=== PATIENT | female | born 1955 | race Caucasian/White ===

== ENCOUNTER 2020-10-04 12:27 | Inpatient (IN) | payer BC, SELFPAY ==
[2020-10-04] VITALS (8 sets, daily range): BP systolic 99–131; BP diastolic 59–77; PULSE 63–99; RESP 20–84; TEMP 36.4–39.1; O2SAT 4–96; BMI 39.0
--- NOTE | 2020-10-04 | ECG_ITS ---
Test Reason : DYSPNEA Blood Pressure : / mmHG Vent. Rate : 084 BPM Atrial Rate : 084 BPM P-R Int : 128 ms QRS Dur : 096 ms QT Int : 382 ms P-R-T Axes : 038 058 028 degrees QTc Int : 451 ms Normal sinus rhythm Normal ECG No previous ECGs available Referred By: Generic ED Physician Electronically Signed By:PHUONG JORDAN
--- NOTE | 2020-10-04 | XR_ITS ---
EXAMINATION: XR CHEST CLINICAL INFORMATION: Hypoxia. COMPARISON: None TECHNIQUE: Frontal view of the chest was obtained. FINDINGS: The lungs are hypoexpanded with patchy opacity seen in right upper lobe, right lower lobe and left lower lobe just above infiltrates. Heart size and pulmonary vascularity is normal. No gross bony abnormality seen. XR/XR chest 1V IMPRESSION: Bilateral multilobar infiltrates.
--- NOTE | 2020-10-04 13:15 | PC.NURSE ---
pt alert and but slightly confused when asking simple questions pt found satting 87%on room while sitting in the emc1 keys bed, moved over quickly to emc4, after ambulation pt's satting at 66% on room air, ls clear, pt is warm to touch, breathing anywhere from 20-26 per min. sinus tach on the monitor about 110.
[2020-10-04 13:41] LABS: Basophils Percent Auto 0.1 % (0-2); Hematocrit 41.6 % (37-47); Hemoglobin 13.9 g/dl (12.0-16.0); Imm Gran Abs Auto 0.13 X10*3/uL (0.00-0.03); Imm Gran Pct Auto 1.5 % (0.0-0.4); Lymphocytes Absolute Auto 0.7 X10*3/uL (1.2-4.9); Lymphocytes Percent Auto 7.9 % (20-40); MANUAL DIFF FLAG NO; Mean Corpuscular HGB Conc 33.4 g/dl (31.0-35.0); Mean Corpuscular Hemoglobin 28.9 pg (27.0-33.0); Mean Corpuscular Volume 86.5 fL (80-98); Mean Platelet Volume 10.6 fL (9.4-12.3); Monocytes Absolute Auto 0.5 X10*3/uL (0.1-1.2); Monocytes Percent Auto 5.6 % (2-11); Neutrophils Absolute Auto 7.6 X10*3/uL (2.0-8.3); Neutrophils Percent Auto 84.9 % (45-73); Platelet Count 243 X10*3/uL (160-400); Red Blood Count 4.81 X10*6/uL (4.20-5.50); Red Cell Distribution Width 12.3 % (11.0-16.0)
--- NOTE | 2020-10-04 13:42 | CT_ITS ---
EXAMINATION: CT HEAD WITHOUT CONTRAST CLINICAL INFORMATION: Weakness, altered mental status COMPARISON: None TECHNIQUE: Contiguous axial imaging was performed from the skull base to vertex without intravenous administration of contrast. This CT examination was performed using dose optimization techniques as appropriate, variously including the following: *Automated exposure control *Adjustment of mA and/or kV according to patient size (this includes techniques or standardized protocols for targeted exams where dose is matched to indication/reason for exam; i.e. extremities or head) *Use of iterative reconstruction technique DLP: 617 mGy-cm FINDINGS: There is no intracranial hemorrhage, hematoma, or extra-axial fluid collection. The ventricles are normal in size. There is no hydrocephalus, edema, or mass effect. The dominguez-white matter differentiation appears symmetric. There is no visible acute territorial infarct or mass lesion. The calvarium appears intact. There is no pneumocephalus or orbital emphysema. The visualized sinuses and middle ears and mastoid air cells show no significant mucosal thickening. There are no air-fluid levels. CT/CT head/brain wo con IMPRESSION: No acute intracranial abnormality.
--- NOTE | 2020-10-04 13:42 | ED.URI ---
HPI - URI/Sore Throat General Chief Complaint: Dyspnea Stated Complaint: covid symptoms Time Seen by Provider: 10/04/20 12:46 Mode of arrival: ambulatory Limitations: altered mental status History of Present Illness HPI Narrative: This is a otherwise healthy 65-year-old female who according to her and her Caleb she has no past medical history- no previous visits here she presents ambulatory via triage with complaint of upper respiratory symptoms of cough, congestion, myalgias for the past 5 days here requesting COVID test. Patient is somewhat slow to respond upon evaluation of her vitals she was found to be hypoxic 80% on room air moved from the rapid COVID testing area to [facility] 4 and dropped to 60% just been ambulating about 10 ft. She seems a little foggy in her thought process likely secondary to the hypoxia I did have a discussion with her who reports again to me that she has been pretty much complaining of myalgias and has had upper respiratory symptoms of slight rhinorrhea/cough and no energy has been sleeping more over the past couple days and she usually goes to search has never missed and yesterday she missed going to [employer] which is highly unusual for her. He tells me that she has no known medical/surgical history. Related Data Allergies Allergy/AdvReac Type Severity Reaction Status Date / Time No Known Allergies Allergy Verified 10/04/20 13:23 Review of Systems Review of Systems: Constitutional: No Weight loss, No Fever, + Chills, No Night Sweats, No Fatigue, No Malaise ENT/Mouth: No Hearing loss, No Ear Pain, No Nasal Congestion, No Sinus Pain, No Hoarseness, No sore throat, + Rhinorrhea, No Swallowing Difficulty Eyes: No Eye Pain, No Swelling, No Redness, No Foreign Body, No Discharge, No Vision Changes Cardiovascular: No Chest Pain, No SOB, No Dyspnea on Exertion, No Orthopnea, No Edema, No Palpitations Respiratory: No Cough, No Sputum, No Wheezing, No Smoke Exposure, No Dyspnea Gastrointestinal: No Nausea, No Vomiting, No Diarrhea, No Constipation, No abdominal Pain, No Hematochezia, No Melena Genitourinary: no irregular bleeding, No Dysuria, No Urinary Frequency, No Hematuria, No Urinary Incontinence, No Urgency, No Flank Pain, No Urinary Flow Changes, No Hesitancy Musculoskeletal: No joint pain, No Myalgias, No Joint Swelling Skin: No Skin Lesions, No rash Neuro: No Weakness, No Numbness, No Paresthesias, No Loss of Consciousness, No Dizziness, No Headache Psych: No Social Issues Heme/Lymph: No Bruising, No Bleeding,No Lymphadenopathy Endocrine: No Polyuria, No Polydipsia, No Temperature Intolerance Yes all other systems are reviewed and are negative [facility] Past Medical History Medical History No known health problems Social History Social History Alcohol intake: never Smoking Status: Never smoker Use of substances other than those prescribed or required for medical reasons: No Advance Directives: No Advance Directives Information Provided: Yes Physical Exam Vital Signs: Vital Signs: Last Vital Signs Temp 102.4 F H 10/04/20 13:17 Pulse 91 10/04/20 14:04 Resp 84 H 10/04/20 14:44 BP 122/64 10/04/20 14:44 Pulse Ox 95 10/04/20 14:44 Body Mass Index 39.0 Reviewed Const: Other: Appears older than stated age Hypoxic Thought process somewhat cloudy Offers no complaints aside from here for COVID test As noted any% on room air and 60% with ambulation of 10 ft Noticeably tachypneic HENMT: Head: Yes normal to inspection Ears: hearing grossly normal bilaterally Eyes: General: appearance normal, both eyes and all related structures Visual Restrepo: normal visual restrepo by confrontation Neck: Neck: Yes normal visual inspection, No positive Brudzinski's sign, No positive Kernig's sign and No tender Thyroid: Thyroid normal Chest: Chest palpation & inspection: normal inspection of the chest Resp: Effort & Inspection: normal respiratory effort Auscultation: clear to auscultation bilaterally Cardio: Jugular venous distension: no JVD Rhythm: regular rhythm Heart sounds: S1 normal heart sound present and S2 normal heart sound present GI: Inspection: Yes normal to inspection Percussion: Yes normal to percussion Auscultation: normal bowel sounds : General: Yes no CVA tenderness Back/Spine/Pelvis: Back: no CVA tenderness Skin: General skin exam: no rashes or lesions noted Extrem: General: Yes normal to inspection Course Course Course Narrative: In review 65-year-old female who apparently has no medical history, surgical history who has had increasingly worsening URI symptoms and increasing lethargy upon arrival somewhat of a poor historian her reports that she has been more foggy in her bowel process found to be hypoxic requiring non-rebreather with positive response. She denies any pain or discomfort. Will need labs including cardiac enzymes had CT, COVID stratification labs. Reevaluation(s) Reevaluation #2: 1515 Bilateral multilobar old infiltrates on the chest x-ray Given Decadron 6 mg IV Case discussed with hospitalist agree given that this is likely COVID pneumonia however given the extensiveness go ahead and administer IV antibiotics. Hospitalist emeka bedside for admission Reevaluation #3: Been informed by lab of critical troponin level 68 EKG nondiagnostic without acute ischemic changes. Plan for repeat at 03:00 hours. Consultations Consultation #1: Hospitalist MDM - URI/Sore Throat Differential Diagnosis Differential diagnosis: Likely upper respiratory infection (, COVID-19, hypoxic respiratory failure, viral syndrome, pneumonia), viral infection and influenza Medical Records Attestation: I reviewed the patient's medical records. Lab Data Attestation: I reviewed the patient's lab results. Result diagrams: 10/04/20 13:32 10/04/20 13:32 Labs: Lab Results 10/04/20 10/04/20 10/04/20 Range/Units 13:31 13:31 13:32 WBC 9.0 (4.8-10.8) X10*3/uL RBC 4.81 (4.20-5.50) X10*6/uL Hgb 13.9 (12.0-16.0) g/dl Hct 41.6 (37-47) % MCV 86.5 (80-98) fL MCH 28.9 (27.0-33.0) pg MCHC 33.4 (31.0-35.0) g/dl RDW 12.3 (11.0-16.0) % Plt Count 243 (160-400) X10*3/uL MPV 10.6 (9.4-12.3) fL Immature Gran % (Auto) 1.5 H (0.0-0.4) % Neut % (Auto) 84.9 H (45-73) % Lymph % (Auto) 7.9 L (20-40) % [place] % (Auto) 5.6 (2-11) % Eos % (Auto) 0.0 (0-4) % Baso % (Auto) 0.1 (0-2) % Lymph # (Auto) 0.7 L (1.2-4.9) X10*3/uL [place] # (Auto) 0.5 (0.1-1.2) X10*3/uL Eos # (Auto) 0.0 (0.0-0.4) X10*3/uL Baso # (Auto) 0.0 (0.0-0.2) X10*3/uL Abs Immat Gran (auto) 0.13 H (0.00-0.03) X10*3/uL Absolute Neuts (auto) 7.6 (2.0-8.3) X10*3/uL Absolute Nucleated RBC 0.000 (0.0-0.012) X10*3/uL Nucleated RBC % (auto) 0.0 (0.0-0.2) /100WBC PT (10.8-13.0) SEC INR (0.9-1.1) APTT (24.1-38.0) SEC D-Dimer NG/ML Sodium (135-145) mmol/L Potassium (3.3-5.1) mmol/l Chloride (96-108) mmol/L Carbon Dioxide (22-29) mmol/L Anion Gap (12-20) BUN (9-16) mg/dL Creatinine (0.5-1.4) mg/dL Estim Creat Clear Calc Estimated GFR Random Glucose (60-115) mg/dL Lactic Acid 1.6 (0.5-2.0) mmol/L Calcium (8.4-10.2) mg/dL Total Bilirubin (0.0-1.0) mg/dL Direct Bilirubin (0.0-0.5) mg/dL AST (5-31) U/L ALT (0-31) U/L Alkaline Phosphatase (39-117) U/L Lactate Dehydrogenase (122-220) U/L Troponin I High Sens (<3.5-17.0) ng/L C-Reactive Protein (< or = 0.50) mg/dL B-Natriuretic Peptide (<100) pg/mL Total Protein (6.5-8.0) g/dL Albumin (3.5-5.0) g/dL Procalcitonin ng/mL Coronavirus (PCR) POSITIVE A (Negative) Influenza Type A (PCR) NEGATIVE (Negative) Influenza Type B (PCR) NEGATIVE (Negative) RSV RNA Qual (PCR) NEGATIVE (Negative) 10/04/20 10/04/20 10/04/20 Range/Units 13:32 13:32 14:15 WBC (4.8-10.8) X10*3/uL RBC (4.20-5.50) X10*6/uL Hgb (12.0-16.0) g/dl Hct (37-47) % MCV (80-98) fL MCH (27.0-33.0) pg MCHC (31.0-35.0) g/dl RDW (11.0-16.0) % Plt Count (160-400) X10*3/uL MPV (9.4-12.3) fL Immature Gran % (Auto) (0.0-0.4) % Neut % (Auto) (45-73) % Lymph % (Auto) (20-40) % [place] % (Auto) (2-11) % Eos % (Auto) (0-4) % Baso % (Auto) (0-2) % Lymph # (Auto) (1.2-4.9) X10*3/uL [place] # (Auto) (0.1-1.2) X10*3/uL Eos # (Auto) (0.0-0.4) X10*3/uL Baso # (Auto) (0.0-0.2) X10*3/uL Abs Immat Gran (auto) (0.00-0.03) X10*3/uL Absolute Neuts (auto) (2.0-8.3) X10*3/uL Absolute Nucleated RBC (0.0-0.012) X10*3/uL Nucleated RBC % (auto) (0.0-0.2) /100WBC PT 15.4 H (10.8-13.0) SEC INR 1.3 H (0.9-1.1) APTT 31.1 (24.1-38.0) SEC D-Dimer 726 NG/ML Sodium 140 (135-145) mmol/L Potassium 3.8 (3.3-5.1) mmol/l Chloride 100 (96-108) mmol/L Carbon Dioxide 27 (22-29) mmol/L Anion Gap 17 (12-20) BUN 16 (9-16) mg/dL Creatinine 1.14 (0.5-1.4) mg/dL Estim Creat Clear Calc 50.0 Estimated GFR 48 Random Glucose 124 H (60-115) mg/dL Lactic Acid (0.5-2.0) mmol/L Calcium 8.8 (8.4-10.2) mg/dL Total Bilirubin 1.4 H (0.0-1.0) mg/dL Direct Bilirubin 0.7 H (0.0-0.5) mg/dL AST 60 H (5-31) U/L ALT 33 H (0-31) U/L Alkaline Phosphatase 55 (39-117) U/L Lactate Dehydrogenase 720 H (122-220) U/L Troponin I High Sens 62.3 H (<3.5-17.0) ng/L C-Reactive Protein 23.45 H (< or = 0.50) mg/dL B-Natriuretic Peptide 32 (<100) pg/mL Total Protein 7.5 (6.5-8.0) g/dL Albumin 4.0 (3.5-5.0) g/dL Procalcitonin ng/mL Coronavirus (PCR) (Negative) Influenza Type A (PCR) (Negative) Influenza Type B (PCR) (Negative) RSV RNA Qual (PCR) (Negative) 10/04/20 Range/Units 14:19 WBC (4.8-10.8) X10*3/uL RBC (4.20-5.50) X10*6/uL Hgb (12.0-16.0) g/dl Hct (37-47) % MCV (80-98) fL MCH (27.0-33.0) pg MCHC (31.0-35.0) g/dl RDW (11.0-16.0) % Plt Count (160-400) X10*3/uL MPV (9.4-12.3) fL Immature Gran % (Auto) (0.0-0.4) % Neut % (Auto) (45-73) % Lymph % (Auto) (20-40) % [place] % (Auto) (2-11) % Eos % (Auto) (0-4) % Baso % (Auto) (0-2) % Lymph # (Auto) (1.2-4.9) X10*3/uL [place] # (Auto) (0.1-1.2) X10*3/uL Eos # (Auto) (0.0-0.4) X10*3/uL Baso # (Auto) (0.0-0.2) X10*3/uL Abs Immat Gran (auto) (0.00-0.03) X10*3/uL Absolute Neuts (auto) (2.0-8.3) X10*3/uL Absolute Nucleated RBC (0.0-0.012) X10*3/uL Nucleated RBC % (auto) (0.0-0.2) /100WBC PT (10.8-13.0) SEC INR (0.9-1.1) APTT (24.1-38.0) SEC D-Dimer NG/ML Sodium (135-145) mmol/L Potassium (3.3-5.1) mmol/l Chloride (96-108) mmol/L Carbon Dioxide (22-29) mmol/L Anion Gap (12-20) BUN (9-16) mg/dL Creatinine (0.5-1.4) mg/dL Estim Creat Clear Calc Estimated GFR Random Glucose (60-115) mg/dL Lactic Acid (0.5-2.0) mmol/L Calcium (8.4-10.2) mg/dL Total Bilirubin (0.0-1.0) mg/dL Direct Bilirubin (0.0-0.5) mg/dL AST (5-31) U/L ALT (0-31) U/L Alkaline Phosphatase (39-117) U/L Lactate Dehydrogenase (122-220) U/L Troponin I High Sens (<3.5-17.0) ng/L C-Reactive Protein (< or = 0.50) mg/dL B-Natriuretic Peptide (<100) pg/mL Total Protein (6.5-8.0) g/dL Albumin (3.5-5.0) g/dL Procalcitonin 0.13 ng/mL Coronavirus (PCR) (Negative) Influenza Type A (PCR) (Negative) Influenza Type B (PCR) (Negative) RSV RNA Qual (PCR) (Negative) Imaging Data Chest x-ray: Radiologist's impression: [id number] [place] [address] XRay Report Signed Patient: Felicia BanksMR#: [id number] : 6Acct:[id number] Age/Sex: 65 / FADM Date: 10/04/20 Loc: .ED Attending Dr: Ordering Physician: Generic ED Physician Date of Service: 10/04/20 Procedure(s): XR chest 1V Accession Number(s): [id number] cc: Generic ED Physician~ EXAMINATION: XR CHEST CLINICAL INFORMATION: Hypoxia. COMPARISON: None TECHNIQUE: Frontal view of the chest was obtained. FINDINGS: The lungs are hypoexpanded with patchy opacity seen in right upper lobe, right lower lobe and left lower lobe just above infiltrates. Heart size and pulmonary vascularity is normal. No gross bony abnormality seen. XR/XR chest 1V IMPRESSION: Bilateral multilobar infiltrates. Dictated By:BENJAMÍN ART MD Signed By:<Electronically signed by BENJAMÍN ART MD in OV>10/04/20 1516 DD/ 1455 TD/TT: Traffic Analysis Technician: SOL ECG Data Interpretation: Normal sinus rhythm Heart rate 84 AK interval within normal limits No acute ST segment changes No previous Critical Care Time Critical Care Time Total Critical Care Time: 65 Attestation: Multiple re-evaluation, monitoring of respiratory status, hypoxia, hypoxic respiratory failure secondary to COVID. Consultation with family and hospitalist. Discharge Plan Discharge Clinical Impression: Pneumonia due to 2019 novel coronavirus, Acute respiratory failure with hypoxemia Patient Disposition: Admitted As Inpatient
[2020-10-04 13:45] LABS: INTERNATIONAL NORM RATIO 1.3 (0.9-1.1); Prothrombin Time 15.4 SEC (10.8-13.0)
[2020-10-04 13:48] LABS: Partial Thromboplastin Time 31.1 SEC (24.1-38.0)
[2020-10-04] MEDS: Acetaminophen 325 MG TABLET 975 MG PO (13:48)
--- NOTE | 2020-10-04 14:01 | PC.NURSE ---
PT 66% ON RA AFTER AMBULATING TO BEDSIDE FROM WAITING AREA, FEBRILE. PLACED ON NONREBREATHER TO ACHIEVE 100% SPO2. PT CURRENT SPO2 96% ON 2L VIA NC. PT SLIGHTLY SLOW TO RESPOND TO QUESTION, ALSO HARD OF HEARING. ALL SPECIMENS COLLECTED. INSTRUCTED ON APPROPRIATE USE OF INHALER.
[2020-10-04 14:02] LABS: Lactic Acid 1.6 mmol/L (0.5-2.0)
[2020-10-04] MEDS: Albuterol Sulfate 90 MCG 8 GM INHALER 4 PUFF INHALE (14:12)
[2020-10-04 14:20] LABS: Alanine Aminotransferase 33 U/L (0-31); Alkaline Phosphatase 55 U/L (39-117); Anion Gap 17 (12-20); Aspartate Amino Transferase 60 U/L (5-31); Bilirubin Direct 0.7 mg/dL (0.0-0.5); Bilirubin Total 1.4 mg/dL (0.0-1.0); Blood Urea Nitrogen 16 mg/dL (9-16); Calcium 8.8 mg/dL (8.4-10.2); Carbon Dioxide 27 mmol/L (22-29); Chloride 100 mmol/L (96-108); Estimated Glomerular Filt Rate 48; Glucose Random 124 mg/dL (60-115); Potassium 3.8 mmol/l (3.3-5.1); Sodium 140 mmol/L (135-145); Total Protein 7.5 g/dL (6.5-8.0)
[2020-10-04 14:29] LABS: D Dimer 726 NG/ML
[2020-10-04 14:29] LABS: Influenza A PCR NEGATIVE (Negative); Influenza B PCR NEGATIVE (Negative); Resp Syncy Virus RNA Qual PCR NEGATIVE (Negative); SARS COV2 PCR INHOUSE POSITIVE (Negative)
--- NOTE | 2020-10-04 14:44 | CT_ITS ---
EXAMINATION: CT ANGIOGRAM OF THE CHEST WITH AND WITHOUT CONTRAST (CT PULMONARY ANGIOGRAM FOR PE) CLINICAL INFORMATION: Reason for Exam Shortness of breath, hypoxia, elevated D-dimer COMPARISON: None TECHNIQUE: Prior to contrast administration, noncontrast localization images were obtained. Subsequently, multidetector volumetric imaging was performed from the thoracic inlet to below the diaphragms following the administration of 80 mL Omnipaque 350 intravenous contrast. No contrast reaction reported Sagittal, coronal, and MIP oblique sagittal reformatted images were obtained on the CT workstation, uploaded to PACS, and reviewed. This CT examination was performed using dose optimization techniques as appropriate, variously including the following: *Automated exposure control *Adjustment of mA and/or kV according to patient size (this includes techniques or standardized protocols for targeted exams where dose is matched to indication/reason for exam; i.e. extremities or head) *Use of iterative reconstruction technique Total exam dose-length product 1072 mGy-cm FINDINGS: QUALITY OF STUDY/CONTRAST BOLUS: Satisfactory. PULMONARY ARTERIES: No central or segmental pulmonary emboli. THORACIC AORTA: No aneurysm or dissection. LUNG: There is diffuse groundglass opacification seen involving the entire right lung, left lower lobe and patchy opacification left upper lobe and lingula. PLEURA: There is no pleural effusion, thickening or pneumothorax. MEDIASTINUM: The heart size and the great vessels are normal caliber. Central trachea and the bronchi widely patent. Thyroid lobes are symmetrical and normal. No evidence of septal bowing or right heart strain. CHEST WALL/AXILLA: No axillary or internal mammary lymphadenopathy. OSSEOUS STRUCTURES: No acute or suspicious osseous abnormality. UPPER ABDOMEN: Visualized liver, spleen, pancreas and bilateral adrenal glands are unremarkable. There are multiple small radiopaque gallstones without wall thickening. No reflux of contrast into the hepatic veins to suggest elevated right heart pressures. CT/CT angio chest PE protocol IMPRESSION: No evidence of PE. No evidence aortic dissection or aneurysm. Extensive bilateral groundglass disease most likely inflammatory changes related to Covid. VTE: negative.
[2020-10-04 14:53] LABS: C Reactive Protein 23.45 mg/dL (< or = 0.50); Lactate Dehydrogenase 720 U/L (122-220)
[2020-10-04 14:57] LABS: B Type Natriuretic Peptide 32 pg/mL (<100)
[2020-10-04 15:01] LABS: Procalcitonin 0.13 ng/mL
[2020-10-04] MEDS: iohexoL 350 MG/ML 100 ML INFUS..BTL IV (15:19)
[2020-10-04] MEDS: cefTRIAXone sodium 1 GM in 0.9 % Sodium Chloride 50 ML IV (15:40)
[2020-10-04 15:43] LABS: Troponin-I High Sensitivity 62.3 ng/L (<3.5-17.0)
[2020-10-04 15:58] LABS: Pt Ventilation O2% 2 L
[2020-10-04 16:15] LABS: ABG PCO2 34 mmhg (32-45); PO2 ABG 154 mmhg (83-108); pH ABG 7.42 (7.35-7.45)
[2020-10-04 16:16] LABS: Base Excess ABG -1.6; HCO3 ABG 22 mmol/l (22-26)
[2020-10-04 16:17] LABS: Blood Gas Serial # 5396
[2020-10-04] MEDS: Azithromycin 500 MG in 0.9 % Sodium Chloride 250 ML 125 MG IV (16:18)
--- NOTE | 2020-10-04 16:31 | P.HPHOSP_ITS ---
History of Present Illness Date of Service: 10/04/20 <Emmie Gomez NP - Last Filed: 10/04/20 16:41> Chief Complaint: Confusion <Emmie Gomez NP - Last Filed: 10/04/20 16:41> 65-year-old woman with no significant medical problems presenting to the ER with dry cough and body pain over the last 5 days. According to the patient's she seemed to be slow to respond and she normally is completel y alert and oriented. On arrival to the ER her oxygen saturation was noted to be 60%. She was placed on a non-rebreather which did seem to help and her O2 sats did, to the 90s. Chest CTA showed extensive bilateral ground-glass disease with no pulmonary embolus. She had a fever of 102.4, no leukocytosis. She denied chest pain, nausea, vomiting, diarrhea. She received dexamethasone, ceftriaxone and azithromycin in the ER. She will be admitted for further management treatment of acute hypoxic respiratory failure secondary to COVID-19. <Emmie Gomez NP - Last Filed: 10/04/20 16:41> Review of Systems Review of Systems: Denies any recent fever chills or decrease in appetite respiratory See HPI cardiovascular is adjustment of any PND or edema gastrointestinal denies any dysphagia abdominal pain nausea vomiting or diarrhea genitourinary denies any dysuria frequency or hematuria musculoskeletal denies any joint pain or swelling neuropsych denies any weakness or seizures all other systems reviewed are negative <Emmie Gomez NP - Last Filed: 10/04/20 16:41> [facility] Medical History: Medical History No known health problems <Emmie Gomez NP - Last Filed: 10/04/20 16:41> Social History: Social History Alcohol intake: never Smoking Status: Never smoker Use of substances other than those prescribed or required for medical reasons: No Currently Displaying Signs/Symptoms of Drug Intoxication Withdrawal: No Advance Directives: No Advance Directives Information Provided: Yes Do you have thoughts of harming others: None Do you have a plan to hurt others: No Plan service: No Current occupational status: other <Emmie Gomez NP - Last Filed: 10/04/20 16:41> Meds Allergies/Adverse reactions: Allergies Allergy/AdvReac Type Severity Reaction Status Date / Time No Known Allergies Allergy Verified 10/04/20 13:23 <Emmie Gomez NP - Last Filed: 10/04/20 16:41> Home medications: Home Medications Medication Instructions Recorded Confirmed Type No Known Home Meds 10/04/20 10/04/20 History <Emmie Gomez NP - Last Filed: 10/04/20 16:41> Physical Exam Vital Signs and Narrative: Vital Signs: Last Vital Signs Temp 102.4 F H 10/04/20 13:17 Pulse 91 10/04/20 14:04 Resp 84 H 10/04/20 14:44 BP 122/64 10/04/20 14:44 Pulse Ox 95 10/04/20 14:44 Body Mass Index 39.0 <Emmie Gomez NP - Last Filed: 10/04/20 16:41> Appearing in no acute distress head is normocephalic atraumatic eyes pupils are PERRLA sclera is anicteric mouth throat mucous membranes are intact and moist neck is supple no lymphadenopathy, no JVD noted lung normal expansion heart regular rate rhythm, clear S1, S2 abdomen nontender neuro patient is alert x3, no focal deficits <Emmie Gomez NP - Last Filed: 10/04/20 16:41> Results Labs CBC and Chem 7: : 10/06/20 05:54 10/06/20 05:55 <Emmie Gomez NP - Last Filed: 10/04/20 16:41> Labs: Laboratory Results - last 24 hr 10/04/20 10/04/20 10/04/20 13:31 13:31 13:32 MCV 86.5 MCH 28.9 MCHC 33.4 RDW 12.3 Plt Count 243 MPV 10.6 Immature Gran % (Auto) 1.5 H Neut % (Auto) 84.9 H Lymph % (Auto) 7.9 L [place] % (Auto) 5.6 Eos % (Auto) 0.0 Baso % (Auto) 0.1 Lymph # (Auto) 0.7 L [place] # (Auto) 0.5 Eos # (Auto) 0.0 Baso # (Auto) 0.0 Abs Immat Gran (auto) 0.13 H Absolute Neuts (auto) 7.6 Absolute Nucleated RBC 0.000 Nucleated RBC % (auto) 0.0 PT INR APTT D-Dimer ABG pH ABG pCO2 ABG pO2 ABG HCO3 ABG O2 Saturation ABG Base Excess Oxygen Given Anion Gap Estim Creat Clear Calc Estimated GFR Random Glucose Lactic Acid 1.6 Calcium Total Bilirubin Direct Bilirubin AST ALT Alkaline Phosphatase Lactate Dehydrogenase Troponin I High Sens C-Reactive Protein B-Natriuretic Peptide Total Protein Albumin Procalcitonin Coronavirus (PCR) POSITIVE A Influenza Type A (PCR) NEGATIVE Influenza Type B (PCR) NEGATIVE RSV RNA Qual (PCR) NEGATIVE 10/04/20 10/04/20 10/04/20 13:32 13:32 14:15 MCV MCH MCHC RDW Plt Count MPV Immature Gran % (Auto) Neut % (Auto) Lymph % (Auto) [place] % (Auto) Eos % (Auto) Baso % (Auto) Lymph # (Auto) [place] # (Auto) Eos # (Auto) Baso # (Auto) Abs Immat Gran (auto) Absolute Neuts (auto) Absolute Nucleated RBC Nucleated RBC % (auto) PT 15.4 H INR 1.3 H APTT 31.1 D-Dimer 726 ABG pH ABG pCO2 ABG pO2 ABG HCO3 ABG O2 Saturation ABG Base Excess Oxygen Given Anion Gap 17 Estim Creat Clear Calc 50.0 Estimated GFR 48 Random Glucose 124 H Lactic Acid Calcium 8.8 Total Bilirubin 1.4 H Direct Bilirubin 0.7 H AST 60 H ALT 33 H Alkaline Phosphatase 55 Lactate Dehydrogenase 720 H Troponin I High Sens 62.3 H C-Reactive Protein 23.45 H B-Natriuretic Peptide 32 Total Protein 7.5 Albumin 4.0 Procalcitonin Coronavirus (PCR) Influenza Type A (PCR) Influenza Type B (PCR) RSV RNA Qual (PCR) 10/04/20 10/04/20 14:19 15:45 MCV MCH MCHC RDW Plt Count MPV Immature Gran % (Auto) Neut % (Auto) Lymph % (Auto) [place] % (Auto) Eos % (Auto) Baso % (Auto) Lymph # (Auto) [place] # (Auto) Eos # (Auto) Baso # (Auto) Abs Immat Gran (auto) Absolute Neuts (auto) Absolute Nucleated RBC Nucleated RBC % (auto) PT INR APTT D-Dimer ABG pH 7.42 ABG pCO2 34 ABG pO2 154 H ABG HCO3 22 ABG O2 Saturation 99.0 ABG Base Excess -1.6 Oxygen Given 2 L Anion Gap Estim Creat Clear Calc Estimated GFR Random Glucose Lactic Acid Calcium Total Bilirubin Direct Bilirubin AST ALT Alkaline Phosphatase Lactate Dehydrogenase Troponin I High Sens C-Reactive Protein B-Natriuretic Peptide Total Protein Albumin Procalcitonin 0.13 Coronavirus (PCR) Influenza Type A (PCR) Influenza Type B (PCR) RSV RNA Qual (PCR) <Emmie Gomez NP - Last Filed: 10/04/20 16:41> Imaging Radiologist's Impressions: Impressions Chest X-Ray 10/04/20 00:00 IMPRESSION: Bilateral multilobar infiltrates. Head CT 10/04/20 13:42 IMPRESSION: No acute intracranial abnormality. Chest CTA 10/04/20 14:44 IMPRESSION: No evidence of PE. No evidence aortic dissection or aneurysm. Extensive bilateral groundglass disease most likely inflammatory changes related to Covid. VTE: negative. <Emmie Gomez NP - Last Filed: 10/04/20 16:41> Assessment and Plan (1) Acute respiratory failure with hypoxemia: Status: Acute <Emmie Gomez NP - Last Filed: 10/04/20 16:41> 65-year-old woman admitted with acute hypoxic respiratory failure secondary to COVID-19. Acute hypoxic respiratory failure secondary to COVID-19. Hypoxia resolved. Normal ABGs. Id consult, doxycycline, dexamethasone. Continue supplemental oxygen. Isolation. Elevated troponin. No complaints of chest pain. Trend troponin. library monitor. DVT prophylaxis with Lovenox. Discussed with Dr. Hamilton Full code <Emmie Gomez NP - Last Filed: 10/04/20 16:41>
--- NOTE | 2020-10-04 16:41 | PC.NURSE ---
pt resting in the stretcher comfortably at this time, vs stable, respirations even and unlabored satting at 95% on two litters, ns on the monitor, denies pain, pt awating room assignment
--- NOTE | 2020-10-04 17:35 | PM.EVENT ---
Event Note Date of Service: 10/04/20 Event Note: Admission note the patient was seen and evaluated with Emmie Gomez NP. I agree with her note, assessment and plan with the following. Summary, a 65 years old lady with now reported past medical history presenting to the hospital with reported weakness, fever and chills, dry cough for the last 5 days. She was found to be significantly hypoxic at time of presentation with reported altered mentation by her at home. Images of the chest of CXR and CTA were consistent with bilateral infiltrates. COVID-19 test came back positive. Admitted for treatment of COVID infection and hypoxic respiratory failure. 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
[2020-10-04 17:52] LABS: Troponin-I High Sensitivity 55.8 ng/L (<3.5-17.0)
--- NOTE | 2020-10-04 22:00 | PC.NURSE ---
called to give report. kati workman.
--- NOTE | 2020-10-04 22:43 | PC.NURSE ---
report given to imc rn
[2020-10-04] MEDS: Doxycycline Hyclate 100 MG in 0.9 % Sodium Chloride 250 ML 166.67 MG IV (23:36)
[2020-10-04] MEDS: 0.9 % Sodium Chloride Flush 3 ML SYRINGE IVFLUSH (23:36)
[2020-10-05] VITALS: BP 123/67; PULSE 68; RESP 20; TEMP 36.9; O2SAT 95
[2020-10-05 03:52] VITALS: BP 117/63; PULSE 76; RESP 20; TEMP 36.8; O2SAT 94
[2020-10-05 06:53] LABS: Basophils Percent Auto 0.2 % (0-2); Hematocrit 39.3 % (37-47); Hemoglobin 12.7 g/dl (12.0-16.0); Imm Gran Abs Auto 0.08 X10*3/uL (0.00-0.03); Imm Gran Pct Auto 1.5 % (0.0-0.4); Lymphocytes Absolute Auto 0.6 X10*3/uL (1.2-4.9); Lymphocytes Percent Auto 11.5 % (20-40); MANUAL DIFF FLAG SCAN; Mean Corpuscular HGB Conc 32.3 g/dl (31.0-35.0); Mean Corpuscular Hemoglobin 28.6 pg (27.0-33.0); Mean Corpuscular Volume 88.5 fL (80-98); Monocytes Absolute Auto 0.2 X10*3/uL (0.1-1.2); Monocytes Percent Auto 4.2 % (2-11); Neutrophils Absolute Auto 4.3 X10*3/uL (2.0-8.3); Neutrophils Percent Auto 82.6 % (45-73); Platelet Count 226 X10*3/uL (160-400); Red Blood Count 4.44 X10*6/uL (4.20-5.50); Red Cell Distribution Width 12.4 % (11.0-16.0); SCAN SMEAR FLAG 1; White Blood Count 5.2 X10*3/uL (4.8-10.8)
[2020-10-05 07:11] LABS: Anion Gap 18 (12-20); Blood Urea Nitrogen 20 mg/dL (9-16); Calcium 8.1 mg/dL (8.4-10.2); Carbon Dioxide 23 mmol/L (22-29); Chloride 107 mmol/L (96-108); Creatinine Clr Calc Pharmacy 67.1; Estimated Glomerular Filt Rate > 60; Glucose Random 158 mg/dL (60-115); Potassium 3.9 mmol/l (3.3-5.1); Sodium 144 mmol/L (135-145)
[2020-10-05] MEDS: dexAMETHasone sod phosphate 4 MG/ML VIAL 6 MG IVPUSH (07:39)
[2020-10-05] MEDS: 0.9 % Sodium Chloride Flush 3 ML SYRINGE IVFLUSH ×2 (07:40→15:42)
[2020-10-05 08:00] VITALS: BP 128/68; PULSE 70; RESP 20; TEMP 36.9; O2SAT 94
[2020-10-05 08:00] LABS: SLIDE REVIEW VERIFIED
--- NOTE | 2020-10-05 09:05 | P.CDIC_ITS ---
CDI Concurrent Query Service Date: 10/05/20 Documentation Clarification: Please clarify if you are treating a proba ble/suspected/likely or confirmed: Viral Sepsis, POA due to COVID-19 No Viral Sepsis, POA Provider Response: Other Other Diagnosis: No Viral Sepsis PLEASE DO NOT DELETE/MODIFY EXISTING CONTENT Additional information is needed in order to code to the highest accuracy and appropriate Severity of Illness (SOI). Please clarify the information noted below in your progress notes and discharge summary. Risk Factors/Clinical Indicators/Treatments 65 year old female admitted with dyspnea altered mental status reported by , cough, congestion, myalgia, hypoxic 60 - 80 % on room air Per ED Impression: Pneumonia due to COVID, Acute Respiratory Failure with hypoxia. WBC 9.0, LA 1.6 T 102.4, P 91, R 22, BP 122/64 CDS: Tahmina Leary RN Contact Number: [phone] Please Review the information above and exercise your independent professional judgment in responding to the query. If you concur, pleas document in the PROGRESS NOTES and DISCHARGE SUMMARY. If you do not agree with the query, please document in the query above. THIS QUERY IS PART OF THE PERMANENT MEDICAL RECORD
--- NOTE | 2020-10-05 09:30 | P.CDIC_ITS ---
CDI Concurrent Query Service Date: 10/05/20 Documentation Clarification: Please clarify if you are treating a proba ble/suspected/likely or confirmed: Metabolic Encephalopathy Toxic Encephalopathy Septic Encephalopathy Provider Response: Metabolic Encephalopathy PLEASE DO NOT DELETE/MODIFY EXISTING CONTENT Additional information is needed in order to code to the highest accuracy and appropriate Severity of Illness (SOI). Please clarify the information noted below in your progress notes and discharge summary. Risk Factors/Clinical Indicators/Treatments 65 year old female admitted with Pneumonia due to COVID and Acute Respiratory Failure with Hypoxia. SAT 60 - 80 % room air. Per ED note, foggy due to hypoxia. Altered mental status reported by at home Treated with non-rebreather and IV antibiotic CDS: Tahmina Leary RN Contact Number: [phone] Please Review the information above and exercise your independent professional judgment in responding to the query. If you concur, pleas document in the PROGRESS NOTES and DISCHARGE SUMMARY. If you do not agree with the query, please document in the query above. THIS QUERY IS PART OF THE PERMANENT MEDICAL RECORD
[2020-10-05] MEDS: Doxycycline Hyclate 100 MG in 0.9 % Sodium Chloride 250 ML 166.67 MG IV (11:08)
--- NOTE | 2020-10-05 11:20 | MHC.CM.PN ---
CM unable to reach Patient nor following multiple attempts. 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 Patient appears to live with her and to be relatively independent. The likely dc plan is home, no services and CM has initiated and will follow for dc planning.
[2020-10-05 12:00] VITALS: BP 137/69; PULSE 76; RESP 18; TEMP 36.4; O2SAT 95; BMI 39.0
[2020-10-05] MEDS: Remdesivir 200 MG in 0.9 % Sodium Chloride 210 ML 105 MG IV (13:28)
[2020-10-05 15:17] VITALS: BP 161/78; PULSE 80; RESP 20; TEMP 36.6; O2SAT 94
--- NOTE | 2020-10-05 16:46 | HO.PM.IMPN ---
Subjective Subjective Date of Service: 10/05/20 Interval History: the patient was seen and evaluated this morning Laying in bed, feels comfortable Mental status significantly improved Denies any fever, chills or shortness of breath No reported other overnight events. Systemic review: No fever, chills or weakness No chest pain, palpitation Reports shortness of breath No abdominal pain, nausea or vomiting No urinary symptoms No any rash or wounds Physical Exam Vital Signs: Vital Signs: Last Vital Signs Temp 97.9 F 10/05/20 15:17 Pulse 80 10/05/20 15:17 Resp 20 10/05/20 15:17 BP 161/78 H 10/05/20 15:17 Pulse Ox 94 10/05/20 15:17 Body Mass Index 39.0 Constitutional : Alert, in mild respiratory distress Neck : Normal inspection, Supple Cardiovascular : RRR, S1 S2, no lower extremity edema Respiratory : On nasal cannula, bilateral chest wall moving, no audible wheezes or crackles Gastrointestinal: soft, lax, Normal bowel sounds, Non tender Skin : Warm/Dry, No rash Neurological : Alert & oriented to self and place, No focal deficit Objective Data Current Medications Generic Name Dose Route Start Last Admin Trade Name Freq PRN Reason Stop Dose Admin Acetaminophen 650 mg 10/04/20 23:03 Acetaminophen 325 Mg Tablet PO Q6H PRN Pain, Mild (Pain Scale 1-3) Dexamethasone Sodium Phosphate 6 mg 10/05/20 09:00 10/05/20 07:39 Dexamethasone Sod Phosphate 4 Mg/Ml Vial IVPUSH 6 mg DAILY ISELA Administration Doxycycline Hyclate 100 mg/ 250 mls @ 166.67 mls/hr 10/04/20 23:00 10/05/20 13:00 Sodium Chloride IV Infused Q12H ISELA Infusion Remdesivir 100 mg/ Sodium 230 mls @ 115 mls/hr 10/06/20 13:00 Chloride IV Q24H ISELA Ondansetron HCl 4 mg 10/04/20 23:03 Ondansetron Hcl 4 Mg/2 Ml Vial IVPUSH Q8H PRN Nausea and Vomiting Sodium Chloride 3 ml 10/05/20 00:00 10/05/20 15:42 0.9 % Sodium Chloride Flush 3 Ml Syringe IVFLUSH 3 ml QSHIFT ISELA Administration Labs CBC & Chem 7: 10/05/20 05:29 10/05/20 05:29 Microbiology Microbiology Results: Microbiology 10/04/20 13:31 Blood - Venous Blood Culture - Preliminary No growth after 24 hours. Assessment and Plan (1) Acute respiratory failure with hypoxemia: Status: Acute Assessment and Plan: 65-year-old woman admitted with acute hypoxic respiratory failure secondary to COVID-19. 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 DVT Lovenox.
[2020-10-05 19:17] VITALS: BP 151/77; PULSE 80; RESP 20; TEMP 36.7; O2SAT 95
--- NOTE | 2020-10-05 21:07 | P.CNID_ITS ---
History of Present Illness Data of Consult Service Date: 10/05/20 Primary Care Provider: None Physician HPI Reason for consult: hypoxia She presents to [facility] to get tested due to weakness and fatigue and was fou nd to have oxygen saturation of 80s and when ambulating into 60s She has no productive sputum She has no nausea or vomiting Review of Systems Review of Systems: Yes all other systems are reviewed and are negative [facility] Past Medical History Medical History No known health problems Family History Family history: reviewed and not pertinent Social History Social History Alcohol intake: never Smoking Status: Never smoker Use of substances other than those prescribed or required for medical reasons: No Currently Displaying Signs/Symptoms of Drug Intoxication Withdrawal: No Advance Directives: No Advance Directives Information Provided: Yes Do you have thoughts of harming others: None Do you have a plan to hurt others: No Plan service: No Current occupational status: other Meds Allergies Allergy/AdvReac Type Severity Reaction Status Date / Time No Known Allergies Allergy Verified 10/04/20 13:23 Home Medications Medication Instructions Recorded Confirmed Type No Known Home Meds 10/04/20 10/04/20 History Physical Exam Vital Signs: Vital Signs: Last Vital Signs Temp 98.1 F 10/05/20 19:17 Pulse 80 10/05/20 19:17 Resp 20 10/05/20 19:17 BP 151/77 H 10/05/20 19:17 Pulse Ox 95 10/05/20 19:17 Body Mass Index 39.0 Const: General: cooperative Orientation/consciousness: oriented to person and oriented to time HENMT: Head: Yes normal to inspection Resp: Effort & Inspection: normal respiratory effort Cardio: Rhythm: regular rhythm Heart sounds: S1 normal heart sound present GI: Palpation (GI): Soft to palpation and nontender Skin: General skin exam: no rashes or lesions noted Neuro: General: oriented to person and oriented to time Extrem: General: Yes no clubbing, cyanosis or edema Assessment and Plan (1) Pneumonia due to 2019 novel coronavirus: Problem details: She has presented from [facility] She has hypoxia She has viral etiology likely,no signs bacterial pneumonia Status: Acute Stop Doxycycline Remdesivir and Dexamethasone per protocol (2) Acute respiratory failure with hypoxemia: Status: Acute Results Labs CBC & Chem 7: 10/05/20 05:29 10/05/20 05:29 Labs: Short CBC 10/05/20 Range/Units 05:29 WBC 5.2 (4.8-10.8) X10*3/uL Hgb 12.7 (12.0-16.0) g/dl Hct 39.3 (37-47) % Plt Count 226 (160-400) X10*3/uL BMP 10/05/20 05:29 Sodium 144 Potassium 3.9 Chloride 107 Carbon Dioxide 23 BUN 20 H Creatinine 0.85 Calcium 8.1 L D Microbiology Microbiology Results: Microbiology 10/04/20 15:38 Blood - Venous Blood Culture - Preliminary No growth after 24 hours. 10/04/20 13:31 Blood - Venous Blood Culture - Preliminary No growth after 24 hours.
[2020-10-06] VITALS (8 sets, daily range): BP systolic 137–157; BP diastolic 67–74; PULSE 64–76; RESP 18–20; TEMP 36.3–36.7; O2SAT 85–100
[2020-10-06] MEDS: 0.9 % Sodium Chloride Flush 3 ML SYRINGE IVFLUSH ×3 (01:06→16:47)
[2020-10-06 06:57] LABS: Hematocrit 42.4 % (37-47); Hemoglobin 13.7 g/dl (12.0-16.0); Mean Corpuscular HGB Conc 32.3 g/dl (31.0-35.0); Mean Corpuscular Hemoglobin 28.4 pg (27.0-33.0); Mean Corpuscular Volume 87.8 fL (80-98); Mean Platelet Volume 11.7 fL (9.4-12.3); Platelet Count 332 X10*3/uL (160-400); Red Blood Count 4.83 X10*6/uL (4.20-5.50); Red Cell Distribution Width 12.4 % (11.0-16.0)
[2020-10-06 07:16] LABS: Anion Gap 16 (12-20); Blood Urea Nitrogen 32 mg/dL (9-16); Calcium 8.9 mg/dL (8.4-10.2); Carbon Dioxide 26 mmol/L (22-29); Chloride 103 mmol/L (96-108); Creatinine Clr Calc Pharmacy 58.1; Estimated Glomerular Filt Rate 57; Glucose Random 192 mg/dL (60-115); Potassium 4.1 mmol/l (3.3-5.1); Sodium 141 mmol/L (135-145)
[2020-10-06] MEDS: dexAMETHasone sod phosphate 4 MG/ML VIAL 6 MG IVPUSH (07:23)
[2020-10-06] MEDS: Remdesivir 100 MG in 0.9 % Sodium Chloride 230 ML 115 MG IV (13:23)
--- NOTE | 2020-10-06 13:41 | MHC.CM.PN ---
DP confirmed with Patient Home no services. Patients will provide transportation to home @ [place]. Patient verbalized understanding that if home services or STR are required, CM dept will set up all post hospital services. CM will follow.
--- NOTE | 2020-10-06 13:49 | P.PNIM_ITS ---
Subjective Subjective Date of Service: 10/06/20 Interval History: the patient was seen and evaluated this morning Laying in bed, feels comfortable Alert, oriented, mental status back to baseline Denies any fever, chills or shortness of breath No reported other overnight events. Systemic review: No fever, chills or weakness No chest pain, palpitation Reports shortness of breath No abdominal pain, nausea or vomiting No urinary symptoms No any rash or wounds Physical Exam Vital Signs: Vital Signs: Last Vital Signs Temp 97.4 F 10/06/20 11:45 Pulse 69 10/06/20 11:45 Resp 18 10/06/20 11:45 BP 143/70 H 10/06/20 11:45 Pulse Ox 92 10/06/20 11:45 Body Mass Index 39.0 Constitutional : Alert, in mild respiratory distress Neck : Normal inspection, Supple Cardiovascular : RRR, S1 S2, no lower extremity edema Respiratory : On nasal cannula, bilateral chest wall moving, no audible wheezes or crackles Gastrointestinal: soft, lax, Normal bowel sounds, Non tender Skin : Warm/Dry, No rash Neurological : Alert & oriented to self and place, No focal deficit Objective Data Current Medications Generic Name Dose Route Start Last Admin Trade Name Freq PRN Reason Stop Dose Admin Acetaminophen 650 mg 10/04/20 23:03 Acetaminophen 325 Mg Tablet PO Q6H PRN Pain, Mild (Pain Scale 1-3) Dexamethasone Sodium Phosphate 6 mg 10/05/20 09:00 10/06/20 07:23 Dexamethasone Sod Phosphate 4 Mg/Ml Vial IVPUSH 6 mg DAILY ISELA Administration Remdesivir 100 mg/ Sodium 230 mls @ 115 mls/hr 10/06/20 13:00 10/06/20 13:23 Chloride IV 115 mls/hr Q24H ISELA Administration Ondansetron HCl 4 mg 10/04/20 23:03 Ondansetron Hcl 4 Mg/2 Ml Vial IVPUSH Q8H PRN Nausea and Vomiting Sodium Chloride 3 ml 10/05/20 00:00 10/06/20 07:23 0.9 % Sodium Chloride Flush 3 Ml Syringe IVFLUSH 3 ml QSHIFT ISELA Administration Labs CBC & Chem 7: 10/06/20 05:54 10/06/20 05:55 Microbiology Microbiology Results: Microbiology 10/04/20 15:38 Blood - Venous Blood Culture - Preliminary No growth after 24 hours. 10/04/20 13:31 Blood - Venous Blood Culture - Preliminary No growth after 24 hours. Assessment and Plan (1) Acute respiratory failure with hypoxemia: Status: Acute (2) Pneumonia due to 2019 novel coronavirus: Status: Acute (3) Metabolic encephalopathy: Status: Acute (4) Elevated troponin: Status: Acute Assessment and Plan: 65-year-old woman admitted with acute hypoxic respiratory failure secondary to COVID-19. Acute hypoxic respiratory failure secondary to COVID-19 Requiring nasal cannula at this point continue IV dexamethasone Started on remdesivir Discontinue doxycycline ID consult Metabolic encephalopathy Resolved Secondary to hypoxia at presentation Avoid medications that might affect her mental status Elevated troponin Likely demand mediated at time of presentation EKG showing no acute changes suggest ACS Trended flat No abnormal waves noticed on property assessment monitor. DVT Lovenox.
[2020-10-07] VITALS (8 sets, daily range): BP systolic 139–163; BP diastolic 65–79; PULSE 76–83; RESP 18–20; TEMP 36.3–37; O2SAT 90–93
[2020-10-07] MEDS: 0.9 % Sodium Chloride Flush 3 ML SYRINGE IVFLUSH ×4 (00:27→23:11)
[2020-10-07] MEDS: dexAMETHasone sod phosphate 4 MG/ML VIAL 6 MG IVPUSH (09:56)
--- NOTE | 2020-10-07 13:36 | HO.PM.IMPN ---
Subjective Subjective Date of Service: 10/07/20 Interval History: seen and examined hoping to go home soon reports breathing and cough much better and overall feeling better daily ROS General - no fevers or chills Cardiovascular - no chest pain Respiratory - +SOB improving Abdominal pain, nausea, vomiting, diarrhea Physical Exam Vital Signs: Vital Signs: Last Vital Signs Temp 97.4 F 10/07/20 11:23 Pulse 79 10/07/20 11:23 Resp 20 10/07/20 11:23 BP 145/76 H 10/07/20 11:23 Pulse Ox 92 10/07/20 11:23 Body Mass Index 39.0 Const: Other: General - no acute distress, appears comfortable Cardiovascular - regular rate and rhythm, S1-S2 Lungs - no distress Abdomen - soft, nontender, no rebound or guarding Extremities - no edema bilaterally Neuro - awake and alert, no focal deficits Objective Data Current Medications Generic Name Dose Route Start Last Admin Trade Name Freq PRN Reason Stop Dose Admin Acetaminophen 650 mg 10/04/20 23:03 Acetaminophen 325 Mg Tablet PO Q6H PRN Pain, Mild (Pain Scale 1-3) Dexamethasone Sodium Phosphate 6 mg 10/05/20 09:00 10/07/20 09:56 Dexamethasone Sod Phosphate 4 Mg/Ml Vial IVPUSH 6 mg DAILY ISELA Administration Remdesivir 100 mg/ Sodium 230 mls @ 115 mls/hr 10/06/20 13:00 10/06/20 15:42 Chloride IV Infused Q24H ISELA Infusion Ondansetron HCl 4 mg 10/04/20 23:03 Ondansetron Hcl 4 Mg/2 Ml Vial IVPUSH Q8H PRN Nausea and Vomiting Sodium Chloride 3 ml 10/05/20 00:00 10/07/20 09:56 0.9 % Sodium Chloride Flush 3 Ml Syringe IVFLUSH 3 ml QSHIFT ISELA Administration Labs CBC & Chem 7: 10/06/20 05:54 10/06/20 05:55 Microbiology Microbiology Results: Microbiology 10/04/20 15:38 Blood - Venous Blood Culture - Preliminary No growth after 48 hours. 10/04/20 13:31 Blood - Venous Blood Culture - Preliminary No growth after 48 hours. Assessment and Plan (1) Pneumonia due to 2019 novel coronavirus: Status: Acute Assessment and Plan: 65-year-old woman admitted with acute hypoxic respiratory failure secondary to COVID-19. 1. Acute hypoxic respiratory failure secondary to wean o2 as tolerated, currently on 2L with sats mid/low 90s continue decadron - day 12/15 continue remdesivir - day 12/10 2. Metabolic encephalopathy Resolved Secondary to hypoxia at presentation Avoid medications that might affect her mental status 3. Elevated troponin no ekg/tele changes, no cp, HS trop-I flat/down-trending likely secondary to on going infectious process Full Code DVT pptx, lovenox
[2020-10-07] MEDS: Remdesivir 100 MG in 0.9 % Sodium Chloride 230 ML 115 MG IV (14:26)
[2020-10-08] VITALS (7 sets, daily range): BP systolic 127–172; BP diastolic 64–91; PULSE 71–87; RESP 18–20; TEMP 36.6–37.1; O2SAT 90–95
[2020-10-08 09:45] LABS: Alanine Aminotransferase 146 U/L (0-31); Albumin Level 3.2 g/dL (3.5-5.0); Alkaline Phosphatase 76 U/L (39-117); Aspartate Amino Transferase 125 U/L (5-31); Bilirubin Direct 0.5 mg/dL (0.0-0.5); Bilirubin Total 1.1 mg/dL (0.0-1.0)
--- NOTE | 2020-10-08 09:52 | HO.PM.IMPN ---
Subjective Subjective Date of Service: 10/08/20 Interval History: seen and examined feeliung better daily ambulating to the bathroom without significant DELGADO ROS General - no fevers or chills Cardiovascular - no chest pain Respiratory - +SOB improving Abdominal pain, nausea, vomiting, diarrhea Physical Exam Vital Signs: Vital Signs: Last Vital Signs Temp 97.8 F 10/08/20 09:01 Pulse 87 10/08/20 09:01 Resp 20 10/08/20 09:01 BP 127/85 10/08/20 09:01 Pulse Ox 91 L 10/08/20 09:01 Body Mass Index 39.0 Const: Other: General - no acute distress, appears comfortable Cardiovascular - regular rate and rhythm, S1-S2 Lungs - no distress Abdomen - soft, nontender, no rebound or guarding Extremities - no edema bilaterally Neuro - awake and alert, no focal deficits Objective Data Current Medications Generic Name Dose Route Start Last Admin Trade Name Freq PRN Reason Stop Dose Admin Acetaminophen 650 mg 10/04/20 23:03 Acetaminophen 325 Mg Tablet PO Q6H PRN Pain, Mild (Pain Scale 1-3) Dexamethasone Sodium Phosphate 6 mg 10/05/20 09:00 10/07/20 09:56 Dexamethasone Sod Phosphate 4 Mg/Ml Vial IVPUSH 6 mg DAILY ISELA Administration Remdesivir 100 mg/ Sodium 230 mls @ 115 mls/hr 10/08/20 11:00 Chloride IV 10/09/20 12:59 Q24H ISELA Ondansetron HCl 4 mg 10/04/20 23:03 Ondansetron Hcl 4 Mg/2 Ml Vial IVPUSH Q8H PRN Nausea and Vomiting Sodium Chloride 3 ml 10/05/20 00:00 10/07/20 23:11 0.9 % Sodium Chloride Flush 3 Ml Syringe IVFLUSH 3 ml QSHIFT ISELA Administration Labs CBC & Chem 7: 10/06/20 05:54 10/06/20 05:55 Microbiology Microbiology Results: Microbiology 10/04/20 15:38 Blood - Venous Blood Culture - Preliminary No growth after 48 hours. 10/04/20 13:31 Blood - Venous Blood Culture - Preliminary No growth after 48 hours. Assessment and Plan (1) Pneumonia due to 2019 novel coronavirus: Status: Acute Assessment and Plan: 65-year-old woman admitted with acute hypoxic respiratory failure secondary to COVID-19. 1. Acute hypoxic respiratory failure secondary to toleratin RA - 91% this AM continue IV decadron - day 01/15 continue IV remdesivir - day 01/10 2. Metabolic encephalopathy Resolved Secondary to hypoxia at presentation Avoid medications that might affect her mental status 3. Elevated troponin no ekg/tele changes, no cp, HS trop-I flat/down-trending likely secondary to on going infectious process Full Code DVT pptx, lovenox dispo: home tomorrow after completion of 5 days of IV remdesivir
[2020-10-08] MEDS: dexAMETHasone sod phosphate 4 MG/ML VIAL 6 MG IVPUSH (10:28)
[2020-10-08] MEDS: 0.9 % Sodium Chloride Flush 3 ML SYRINGE IVFLUSH ×3 (10:28→22:19)
[2020-10-08] MEDS: Remdesivir 100 MG in 0.9 % Sodium Chloride 230 ML 115 MG IV (12:07)
--- NOTE | 2020-10-09 | XR_ITS ---
EXAMINATION: XR CHEST CLINICAL INFORMATION: ] Flow. Hypoxia. COMPARISON: Chest 10/04/2020 TECHNIQUE: Frontal view of the chest was obtained. FINDINGS: The lungs are hypoexpanded with patchy opacity and right upper lobe, right lower lobe and left lung base unchanged. There is elevated right hemidiaphragm. The heart size and pulmonary vascularity is normal. No gross bony abnormality seen. XR/XR chest 1V IMPRESSION: Stable patchy opacity right upper lobe, right lower lobe and left lower lobe. Right lower lobe patchy opacity.
[2020-10-09 04:00] VITALS: BP 160/79; PULSE 73; RESP 20; TEMP 37; O2SAT 93
[2020-10-09 08:00] VITALS: BP 116/62; PULSE 94; RESP 20; TEMP 36.6; O2SAT 87
[2020-10-09 09:04] LABS: Alanine Aminotransferase 223 U/L (0-31); Albumin Level 3.3 g/dL (3.5-5.0); Alkaline Phosphatase 103 U/L (39-117); Aspartate Amino Transferase 127 U/L (5-31); Bilirubin Direct 0.6 mg/dL (0.0-0.5); Bilirubin Total 1.2 mg/dL (0.0-1.0); Total Protein 6.3 g/dL (6.5-8.0)
[2020-10-09] MEDS: dexAMETHasone sod phosphate 4 MG/ML VIAL 6 MG IVPUSH (09:40)
[2020-10-09] MEDS: 0.9 % Sodium Chloride Flush 3 ML SYRINGE IVFLUSH ×2 (09:40→16:45)
[2020-10-09 09:50] LABS: C Reactive Protein 2.37 mg/dL (< or = 0.50)
[2020-10-09 10:15] LABS: Procalcitonin 0.05 ng/mL
[2020-10-09 11:33] VITALS: BP 141/78; PULSE 81; RESP 20; TEMP 36.6; O2SAT 92
--- NOTE | 2020-10-09 13:47 | HO.PM.IMPN ---
Subjective Subjective Date of Service: 10/09/20 Interval History: seen and examined this AM hoping to go home placed on o2, became mildly hypoxic she reports feeling much better ROS General - no fevers or chills Cardiovascular - no chest pain Respiratory - no shortness of breath or cough Abdominal- no abdominal pain, nausea, vomiting, diarrhea Physical Exam Vital Signs: Vital Signs: Last Vital Signs Temp 97.8 F 10/09/20 11:33 Pulse 81 10/09/20 11:33 Resp 20 10/09/20 11:33 BP 141/78 H 10/09/20 11:33 Pulse Ox 92 10/09/20 11:33 Body Mass Index 39.0 Const: Other: General - no acute distress, appears comfortable Cardiovascular - regular rate and rhythm, S1-S2 Lungs - no distress, dim Abdomen - soft, nontender, no rebound or guarding Extremities - no edema bilaterally Neuro - awake and alert, no focal deficits Objective Data Current Medications Generic Name Dose Route Start Last Admin Trade Name Freq PRN Reason Stop Dose Admin Acetaminophen 650 mg 10/04/20 23:03 Acetaminophen 325 Mg Tablet PO Q6H PRN Pain, Mild (Pain Scale 1-3) Dexamethasone Sodium Phosphate 6 mg 10/05/20 09:00 10/09/20 09:40 Dexamethasone Sod Phosphate 4 Mg/Ml Vial IVPUSH 6 mg DAILY ISELA Administration Ondansetron HCl 4 mg 10/04/20 23:03 Ondansetron Hcl 4 Mg/2 Ml Vial IVPUSH Q8H PRN Nausea and Vomiting Sodium Chloride 3 ml 10/05/20 00:00 10/09/20 09:40 0.9 % Sodium Chloride Flush 3 Ml Syringe IVFLUSH 3 ml QSHIFT ISELA Administration Labs CBC & Chem 7: 10/06/20 05:54 10/06/20 05:55 Imaging Chest x-ray: My impression: stable changes from prior Radiologist's impression: pending Microbiology Microbiology Results: Microbiology 10/04/20 15:38 Blood - Venous Blood Culture - Preliminary No growth after 48 hours. 10/04/20 13:31 Blood - Venous Blood Culture - Preliminary No growth after 48 hours. Assessment and Plan (1) Pneumonia due to 2019 novel coronavirus: Status: Acute Assessment and Plan: 65-year-old woman admitted with acute hypoxic respiratory failure secondary to COVID-19. 1. Acute hypoxic respiratory failure secondary to sats 87 on RA this AM will place back on o2 and re-eval need for home O2 tomorrow inflammatory biomakers downtrending; repeat cxr pending read, but apppears about the same continue IV decadron - day 02/14 remdesivir stopped (LFTs increased) 2. Metabolic encephalopathy Resolved Secondary to hypoxia at presentation Avoid medications that might affect her mental status 3. Elevated troponin no ekg/tele changes, no cp, HS trop-I flat/down-trending likely secondary to on going infectious process 4. Abnormal LFTs monitor Full Code DVT pptx, lovenox dispo: likely home next 24-48 hours, may need to go home with O2
[2020-10-09 15:39] VITALS: BP 142/77; PULSE 87; TEMP 36.6; O2SAT 91
[2020-10-09 19:31] VITALS: BP 143/87; PULSE 82; RESP 18; TEMP 36.7; O2SAT 93
[2020-10-09 20:00] VITALS: BP 143/87; PULSE 81; RESP 18; TEMP 36.5; O2SAT 93
[2020-10-10] VITALS: BP 152/74; PULSE 80; RESP 18; TEMP 36.8; O2SAT 95
[2020-10-10] MEDS: 0.9 % Sodium Chloride Flush 3 ML SYRINGE IVFLUSH ×4 (00:31→21:06)
[2020-10-10 03:26] VITALS: BP 158/72; PULSE 73; RESP 18; TEMP 37; O2SAT 93
[2020-10-10 08:00] VITALS: BP 140/73; PULSE 80; RESP 18; TEMP 36.2; O2SAT 95
[2020-10-10] MEDS: dexAMETHasone sod phosphate 4 MG/ML VIAL 6 MG IVPUSH (10:22)
[2020-10-10 12:00] VITALS: BP 165/87; PULSE 85; RESP 19; TEMP 36.6; O2SAT 94
--- NOTE | 2020-10-10 13:41 | HO.PM.IMPN ---
Subjective Subjective Date of Service: 10/10/20 Interval History: seen and examined this AM no complaints ROS General - no fevers or chills Cardiovascular - no chest pain Respiratory - no shortness of breath or cough Abdominal- no abdominal pain, nausea, vomiting, diarrhea Physical Exam Vital Signs: Vital Signs: Last Vital Signs Temp 97.1 F 10/10/20 08:00 Pulse 80 10/10/20 08:00 Resp 18 10/10/20 08:00 BP 140/73 H 10/10/20 08:00 Pulse Ox 95 10/10/20 08:00 Body Mass Index 39.0 Const: Other: General - no acute distress, appears comfortable Cardiovascular - regular rate and rhythm, S1-S2 Lungs - no distress, dim Abdomen - soft, nontender, no rebound or guarding Extremities - no edema bilaterally Neuro - awake and alert, no focal deficits Objective Data Current Medications Generic Name Dose Route Start Last Admin Trade Name Freq PRN Reason Stop Dose Admin Acetaminophen 650 mg 10/04/20 23:03 Acetaminophen 325 Mg Tablet PO Q6H PRN Pain, Mild (Pain Scale 1-3) Dexamethasone Sodium Phosphate 6 mg 10/05/20 09:00 10/10/20 10:22 Dexamethasone Sod Phosphate 4 Mg/Ml Vial IVPUSH 6 mg DAILY ISELA Administration Ondansetron HCl 4 mg 10/04/20 23:03 Ondansetron Hcl 4 Mg/2 Ml Vial IVPUSH Q8H PRN Nausea and Vomiting Sodium Chloride 3 ml 10/05/20 00:00 10/10/20 10:22 0.9 % Sodium Chloride Flush 3 Ml Syringe IVFLUSH 3 ml QSHIFT ISELA Administration Labs CBC & Chem 7: 10/06/20 05:54 10/06/20 05:55 Microbiology Microbiology Results: Microbiology 10/04/20 15:38 Blood - Venous Blood Culture - Final No growth after 5 days. 10/04/20 13:31 Blood - Venous Blood Culture - Final No growth after 5 days. Assessment and Plan (1) Pneumonia due to 2019 novel coronavirus: Status: Acute Assessment and Plan: 65-year-old woman admitted with acute hypoxic respiratory failure secondary to COVID-19. 1. Acute hypoxic respiratory failure secondary to stable on 1L Home O2 eval inflammatory biomakers downtrending; repeat cxr stable continue IV decadron - day 03/17, change to PO upon d/c remdesivir stopped (LFTs increased) -- outpatient 2. Metabolic encephalopathy Resolved Secondary to hypoxia at presentation Avoid medications that might affect her mental status 3. Elevated troponin no ekg/tele changes, no cp, HS trop-I flat/down-trending likely secondary to on going infectious process 4. Abnormal LFTs monitor Full Code DVT pptx, lovenox dispo: home, likely with oxygen
[2020-10-10 15:20] VITALS: BP 139/80; PULSE 79; RESP 20; TEMP 36.8; O2SAT 93
[2020-10-10] MEDS: Nystatin Powder 15 GM BOTTLE 1 APPL TOPICAL ×2 (15:23→21:06)
[2020-10-10 19:22] VITALS: BP 135/80; PULSE 73; RESP 18; TEMP 37.1; O2SAT 93
[2020-10-11] VITALS (7 sets, daily range): BP systolic 135–171; BP diastolic 68–95; PULSE 78–108; RESP 18–20; TEMP 36.3–37.1; O2SAT 88–96
[2020-10-11] MEDS: 0.9 % Sodium Chloride Flush 3 ML SYRINGE IVFLUSH (08:54)
[2020-10-11] MEDS: Nystatin Powder 15 GM BOTTLE 1 APPL TOPICAL (08:54)
[2020-10-11] MEDS: dexAMETHasone sod phosphate 4 MG/ML VIAL 6 MG IVPUSH (08:54)
--- NOTE | 2020-10-11 11:42 | MHC.CM.PN ---
DISCHARGE TODAY. Female 65 DX COVID+ DC to home today with new home oxygen. [facility] will be provider of O2 and supplies. Patients is providing transportation home.
--- NOTE | 2020-10-11 12:45 | P.DS_ITS ---
DS: Providers Provider Date of admission: 10/04/20 16:29 Primary care physician: None Physician Consults: 10/04/20 23:03 Consult to Infectious Diseases Routine Consulting Provider: Debo John Reason for consultation: hypoxia covid 19 Has provider been notified: No DS: Diagnosis Discharge Diagnosis (1) Pneumonia due to 2019 novel coronavirus: Status: Acute (2) Acute respiratory failure with hypoxemia: Status: Acute (3) Metabolic encephalopathy: Status: Acute (4) Elevated troponin: Status: Acute DS: Medications Discharge Medications Home Medications: Previous Rx's Medication Instructions Recorded dexamethasone [Decadron] 8 mg PO BID #6 tab 10/11/20 DS: Summary Hospital Course Hospital Course: Patient presented with respiratory failure secondary to COVID-19. She was also encephalopathic from her hypoxia and had a mild elevation in her high sensitivity troponin without chest pain or EKG changes with a repeat value which was down trending. She was treated with supplemental oxygen and IV Decadron and over the course of 7 days had significant improvement in her symptoms. She was tested for home oxygen at the time of discharge and qualify for 1 L with exertion. She is to complete 3 more days of oral Decadron and maintain self isolation per CDC guidelines. Time Spent with Patient Time attestation: Total time spent providing and/or coordinating discharge services: Physical Exam Vital Signs: Vital Signs: Last Vital Signs Temp 97.3 F 10/11/20 11:49 Pulse 96 10/11/20 11:49 Resp 20 10/11/20 11:49 BP 171/90 H 10/11/20 11:49 Pulse Ox 94 10/11/20 11:49 Body Mass Index 39.0 Const: Other: General - no acute distress, appears comfortable Cardiovascular - regular rate and rhythm, S1-S2 Lungs - no distress Abdomen - soft, nontender, no rebound or guarding Extremities - no edema bilaterally Neuro - awake and alert, no focal deficits DS: Data Data Completed and Pending Labs on day of discharge: Laboratory Last Values WBC 13.0 X10*3/uL (4.8-10.8) H 10/06/20 05:54 RBC 4.83 X10*6/uL (4.20-5.50) 10/06/20 05:54 Hgb 13.7 g/dl (12.0-16.0) 10/06/20 05:54 Hct 42.4 % (37-47) 10/06/20 05:54 MCV 87.8 fL (80-98) 10/06/20 05:54 MCH 28.4 pg (27.0-33.0) 10/06/20 05:54 MCHC 32.3 g/dl (31.0-35.0) 10/06/20 05:54 RDW 12.4 % (11.0-16.0) 10/06/20 05:54 Plt Count 332 X10*3/uL (160-400) D 10/06/20 05:54 MPV 11.7 fL (9.4-12.3) 10/06/20 05:54 Immature Gran % (Auto) 1.5 % (0.0-0.4) H 10/05/20 05:29 Neut % (Auto) 82.6 % (45-73) H 10/05/20 05:29 Lymph % (Auto) 11.5 % (20-40) L 10/05/20 05:29 [facility] % (Auto) 4.2 % (2-11) 10/05/20 05:29 Eos % (Auto) 0.0 % (0-4) 10/05/20 05:29 Baso % (Auto) 0.2 % (0-2) 10/05/20 05:29 Lymph # (Auto) 0.6 X10*3/uL (1.2-4.9) L 10/05/20 05:29 [facility] # (Auto) 0.2 X10*3/uL (0.1-1.2) 10/05/20 05:29 Eos # (Auto) 0.0 X10*3/uL (0.0-0.4) 10/05/20 05:29 Baso # (Auto) 0.0 X10*3/uL (0.0-0.2) 10/05/20 05:29 Abs Immat Gran (auto) 0.08 X10*3/uL (0.00-0.03) H 10/05/20 05:29 Absolute Neuts (auto) 4.3 X10*3/uL (2.0-8.3) 10/05/20 05:29 Absolute Nucleated RBC 0.000 X10*3/uL (0.0-0.012) 10/06/20 05:54 Nucleated RBC % (auto) 0.0 /100WBC (0.0-0.2) 10/06/20 05:54 Smear Tech's Comments VERIFIED 10/05/20 05:29 PT 15.4 SEC (10.8-13.0) H 10/04/20 13:32 INR 1.3 (0.9-1.1) H 10/04/20 13:32 APTT 31.1 SEC (24.1-38.0) 10/04/20 13:32 D-Dimer 726 NG/ML 10/04/20 13:32 ABG pH 7.42 (7.35-7.45) 10/04/20 15:45 ABG pCO2 34 mmhg (32-45) 10/04/20 15:45 ABG pO2 154 mmhg (83-108) H 10/04/20 15:45 ABG HCO3 22 mmol/l (22-26) 10/04/20 15:45 ABG O2 Saturation 99.0 % 10/04/20 15:45 ABG Base Excess -1.6 10/04/20 15:45 Oxygen Given 2 L 10/04/20 15:45 Sodium 141 mmol/L (135-145) 10/06/20 05:55 Potassium 4.1 mmol/l (3.3-5.1) 10/06/20 05:55 Chloride 103 mmol/L (96-108) 10/06/20 05:55 Carbon Dioxide 26 mmol/L (22-29) 10/06/20 05:55 Anion Gap 16 (-20) 10/06/20 05:55 BUN 32 mg/dL (9-16) H D 10/06/20 05:55 Creatinine 0.98 mg/dL (0.5-1.4) 10/06/20 05:55 Estim Creat Clear Calc 58.1 10/06/20 05:55 Estimated GFR 57 10/06/20 05:55 Random Glucose 192 mg/dL (60-115) H 10/06/20 05:55 Lactic Acid 1.6 mmol/L (0.5-2.0) 10/04/20 13:31 Calcium 8.9 mg/dL (8.4-10.2) D 10/06/20 05:55 Total Bilirubin 1.2 mg/dL (0.0-1.0) H 10/09/20 08:18 Direct Bilirubin 0.6 mg/dL (0.0-0.5) H 10/09/20 08:18 AST 127 U/L (5-31) H 10/09/20 08:18 ALT 223 U/L (0-31) H 10/09/20 08:18 Alkaline Phosphatase 103 U/L (39-117) D 10/09/20 08:18 Lactate Dehydrogenase 720 U/L (122-220) H 10/04/20 13:32 Troponin I High Sens 55.8 ng/L (<3.5-17.0) H 10/04/20 16:49 C-Reactive Protein 2.37 mg/dL (< or = 0.50) H 10/09/20 08:18 B-Natriuretic Peptide 32 pg/mL (<100) 10/04/20 14:15 Total Protein 6.3 g/dL (6.5-8.0) L 10/09/20 08:18 Albumin 3.3 g/dL (3.5-5.0) L 10/09/20 08:18 Procalcitonin 0.05 ng/mL 10/09/20 08:18 Coronavirus (PCR) POSITIVE (Negative) A 10/04/20 13:31 Influenza Type A (PCR) NEGATIVE (Negative) 10/04/20 13:31 Influenza Type B (PCR) NEGATIVE (Negative) 10/04/20 13:31 RSV RNA Qual (PCR) NEGATIVE (Negative) 10/04/20 13:31 Discharge Plan Discharge Patient Disposition: Home, Self-Care Referrals: [facility] [Other] (HOME OXYGEN AND SUPPLIES.) Physician,None [Primary Care Provider] - Discharge Medications: New dexamethasone [Decadron] 4 mg tablet 8 mg PO BID Qty: 6 RF: 0 Discharge Orders: Discharge Order (Routine); Ordered 10/11/20 Ordered By: Gigi Bennett Diet: advance to usual diet Activity on Discharge: As tolerated Visit Report Forms: Patient Portal Discharge page Care Plan Goals: To stay healthy and out of the hospital. Health Concerns: COVID-19 Plan of Treatment: Please take 3 more days of Decadron. Please use oxygen with exertion. If you start having worsening shortness of breath or persistent fevers please return to the emergency room. Maintain isolation per CDC guidelines.
== END 2020-10-11 18:00 | disposition home or self-care (01) | DRG 137 ==
LOC: HO.ED 17:37 → HO.IMC 21:40
PROVIDERS: Nurse Practitioner Acute Care; Nurse Practitioner Primary Care; Admitting Provider Student in an Organized Health Care Education/Training Program; Emergency Provider Emergency Medicine Emergency Medical Services; Visit Provider Family Medicine
DX: U07.1 COVID-19 (principal); J96.01 Acute respiratory failure with hypoxia; G93.41 Metabolic encephalopathy; J12.89 Other viral pneumonia
CPT/HCPCS: 0241U; 11104; 36415; 70450; 71045; 71275; 80048; 80076; 82803; 83605; 83615; 83880; 84145; 84484; 85025; 85027; 85379; 85610; 85730; 86140; 87040; 93005; 96365; 96366; 96367; 96375; 99285; 99291; J0456; J0696; J1100; J3490; Q9967

== ENCOUNTER 2020-10-18 09:25 | Outpatient (REF) | payer BC, SELFPAY | END 2020-10-18 09:26 | disposition home or self-care (01) | LOC: HO.LAB 09:25 | PROVIDERS: Visit Provider Internal Medicine | DX: Z20.822 Contact with and (suspected) exposure to COVID-19 (principal) | CPT/HCPCS: 36415; C9803; U0003 ==